=== PATIENT | female | born 1995 | race African-American/Black ===

== ENCOUNTER 2023-12-06 04:41 | Emergency (ER) | payer MEDICAID ==
[~2023-12-06] VITALS: Ht 170.2 cm; Wt 83.0 kg
[~2023-12-06 04:41] MED LIST: AMOX1TAB16 MT; BO1 TP; NAPR-1176 MT
[2023-12-06 04:51] VITALS: O2SAT 99
[2023-12-06 05:04] VITALS: BP 131/87; PULSE 58; RESP 16; TEMP 99.3; O2SAT 98
== END 2023-12-06 05:40 | disposition left against medical advice (07) ==
LOC: ER 04:41
DX: H92.01 Otalgia, right ear (principal); Z53.21 Procedure and treatment not carried out due to patient leaving prior to being seen by health care provider